=== PATIENT | male | born 1975 | race Caucasian/White ===

== ENCOUNTER 2020-03-08 11:46 | Emergency (ER) | payer BC, OTHER ==
[~2020-03-08] VITALS: Ht 157 cm; Wt 145.0 kg
[2020-03-08] MEDS: NITROGLYCERIN 0.4 MG SL TABS BTL 25'S SL PRN ×3 (12:28→14:44)
[2020-03-08] MEDS ORDERED: ASPIRIN 81 MG CHEW (CHILDREN'S ASA) PO ONE (12:30)
--- NOTE | 2020-03-08 12:31 | ED Chest Pain ---
General Chief Complaint: General Problems/Pain Stated Complaint: SOA;CHEST PAIN;HIGH BP Nursing Triage Note: PT ARRIVES TO ER WITH C/O CHEST PAIN, BLURRY VISION, SEVERE HEADACHES. 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 PT SAW AN EYE DOCTOR RECENTLY FOR BLURRY VISION AND THEY SAID IT WAS DUE TO HIGH BP WELL. PT SAYS CHEST PAIN IS A SQUEEZING PAIN RATED AT 3/10 AND DEEP BREATHS HELP THE PAIN. Nursing Sepsis Screen: No Definite Risk Source: patient Exam Limitations: no limitations History of Present Illness Date Seen by Provider: Mar 08, 2020 Time Seen by Provider: 12:12 Initial Comments This 44 her old gentleman presents to the emergency room with complaints of chest pressure, worse with exertion, that has been present intermittently since January. His pain started when he woke up this morning. He also has had some headaches and blurred vision. His blood pressure is markedly elevated. He has had hypertension in the past but has not been treated for it recently. Patient chews tobacco and drinks alcohol 3 or 4 days week typically. He also has a history of ulcer. Pain typically improves with deep breathing. Patient reports a previous evaluation with stress test a few years ago which was reportedly negative. It was performed at an outside facility. Allergies and Home Medications Allergies Coded Allergies: No Known Drug Allergies (Unverified , 03/08/20) Home Medications Lisinopril/Hydrochlorothiazide 1 Each Tablet, 1 EACH PO DAILY Prescribed by: SHERICE PLAZA on 03/08/20 1506 Omeprazole 20 Mg Capsule.dr, 20 MG PO BID Prescribed by: SHERICE PLAZA on 03/08/20 1506 Patient Home Medication List Home Medication List Reviewed: Yes Review of Systems Review of Systems Constitutional: no symptoms reported EENTM: See HPI Respiratory: See HPI Cardiovascular: See HPI Gastrointestinal: No Symptoms Reported Genitourinary: No Symptoms Reported Musculoskeletal: no symptoms reported Skin: no symptoms reported Psychiatric/Neurological: See HPI Endocrine: No Symptoms Reported Past Rvgoncd-Dusvsq-Pcivmb Hx Past Med/Social Hx: Reviewed Nursing Past Med/Soc Hx Patient Social History Alcohol Use: Regular Use (3 or 4 days per week) Alcohol Beverage of Choice: Beer Recreational Drug Use: No Recent Foreign Travel: No Contact w/Someone Who Travel: No Recent Infectious Disease Expo: No Past Medical History Surgeries: No Respiratory: No Cardiac: Yes Hypertension Neurological: No Genitourinary: No Gastrointestinal: No Musculoskeletal: Yes Chronic Back Pain Endocrine: Yes (Morbid obesity) HEENT: No Cancer: No Did You Recieve Any Treatments: No Psychosocial: No Integumentary: No Physical Exam Vital Signs Vital Signs - First Documented 03/08/20 12:05 Temp 36.7 Pulse 87 Resp 18 B/P (MAP) 201/129 (153) Pulse Ox 99 O2 Delivery Room Air Capillary Refill : Less Than 3 Seconds Height, Weight, BMI Height: '" Weight: lbs. oz. kg; 58.00 BMI Method: General Appearance: No Apparent Distress, WD/WN, Obese HEENT: PERRL/EOMI, Normal ENT Inspection, Pharynx Normal Neck: Normal Inspection; No JVD Respiratory: Lungs Clear, Normal Breath Sounds, No Accessory Muscle Use Cardiovascular: Regular Rate, Rhythm, No Edema Gastrointestinal: Normal Bowel Sounds, Soft, Tenderness (epigastric) Extremity: Normal Inspection, Non Tender, No Calf Tenderness, No Pedal Edema Neurologic/Psychiatric: Alert, Oriented x3, No Motor/Sensory Deficits, Normal Mood/Affect, blocklayer II-XII Norm as Tested Skin: Normal Color, Warm/Dry Progress/Results/Core Measures Results/Orders Lab Results Laboratory Tests Test 03/08/20 12:25 03/08/20 12:33 03/08/20 12:41 03/08/20 14:25 Range/Units White Blood Count 7.5 4.3-11.0 10^3/uL Red Blood Count 5.24 4.30-5.52 10^6/uL Hemoglobin 14.7 13.3-17.7 g/dL Hematocrit 44 40-54 % Mean Corpuscular Volume 85 80-99 fL Mean Corpuscular Hemoglobin 28 25-34 pg Mean Corpuscular Hemoglobin Concent 33 32-36 g/dL Red Cell Distribution Width 12.7 10.0-14.5 % Platelet Count 312 130-400 10^3/uL Mean Platelet Volume 9.9 9.0-12.2 fL Immature Granulocyte % (Auto) 0 % Neutrophils (%) (Auto) 69 42-75 % Lymphocytes (%) (Auto) 22 12-44 % Monocytes (%) (Auto) 7 0-12 % Eosinophils (%) (Auto) 1 0-10 % Basophils (%) (Auto) 1 0-10 % Neutrophils # (Auto) 5.2 1.8-7.8 10^3/uL Lymphocytes # (Auto) 1.6 1.0-4.0 10^3/uL Monocytes # (Auto) 0.5 0.0-1.0 10^3/uL Eosinophils # (Auto) 0.1 0.0-0.3 10^3/uL Basophils # (Auto) 0.0 0.0-0.1 10^3/uL Immature Granulocyte # (Auto) 0.0 0.0-0.1 10^3/uL Sodium Level 142 135-145 MMOL/L Potassium Level 3.8 3.6-5.0 MMOL/L Chloride Level 105 98-107 MMOL/L Carbon Dioxide Level 26 21-32 MMOL/L Anion Gap 11 5-14 MMOL/L Blood Urea Nitrogen 11 7-18 MG/DL Creatinine 0.99 0.60-1.30 MG/DL Estimat Glomerular Filtration Rate > 60 BUN/Creatinine Ratio 11 Glucose Level 99 70-105 MG/DL Calcium Level 8.9 8.5-10.1 MG/DL Corrected Calcium 8.9 8.5-10.1 MG/DL Magnesium Level 1.8 1.6-2.4 MG/DL Total Bilirubin 1.0 0.1-1.0 MG/DL Aspartate Amino Transf (AST/SGOT) 29 5-34 U/L Alanine Aminotransferase (ALT/SGPT) 69 H 0-55 U/L Alkaline Phosphatase 63 40-136 U/L Myoglobin 41.4 10.0-92.0 NG/ML Troponin I < 0.028 < 0.028 <0.028 NG/ML B-Type Natriuretic Peptide 39.2 <100.0 PG/ML Total Protein 7.1 6.4-8.2 GM/DL Albumin 4.0 3.2-4.5 GM/DL Coronavirus 2019 ([facility]) Negative Negative Prothrombin Time 13.5 12.2-14.7 SEC INR Comment 1.0 0.8-1.4 Activated Partial Thromboplast Time 31 24-35 SEC My Orders Orders - SHERICE JONES MD Cbc With Automated Diff (03/08/20 12:21) Magnesium (03/08/20 12:21) Chest 1 View, Ap/Pa Only (03/08/20 12:21) Ekg Tracing (03/08/20 12:21) Comprehensive Metabolic Panel (03/08/20 12:21) Myoglobin Serum (03/08/20 12:21) Protime With Inr (03/08/20 12:21) Partial Thromboplastin Time (03/08/20 12:21) O2 (03/08/20 12:21) Monitor-Rhythm Ecg Trace Only (03/08/20 12:21) Ed Iv/Invasive Line Start (03/08/20 12:21) BNP (03/08/20 12:21) Troponin I (03/08/20 12:21) Nitroglycerin 0.4 Mg Btl 25's (Nitrostat (03/08/20 12:30) Aspirin Chewable Tablet (Baby Aspirin Ch (03/08/20 12:30) Covid 19 Inhouse Test (03/08/20 12:27) Coronavirus Sars-Cov-2 So 2018 (03/08/20 13:05) Ondansetron Injection (Zofran Injectio (03/08/20 13:30) Lidocaine 2% Viscous 15 Ml (Xylocaine Vi (03/08/20 13:30) Antacid Suspension (Mylanta Suspension (03/08/20 13:30) Famotidine Injection (Pepcid Injection) (03/08/20 13:26) Troponin I (03/08/20 14:25) Enalaprilat Inj (Vasotec Inj) (03/08/20 14:30) Medications Given in ED Current Medications Medications Dose Ordered Sig/Fannie Route Start Time Stop Time Status Last Admin Dose Admin Al Hydrox/Mg Hydrox/Simethicone 30 ml ONCE ONCE PO 03/08/20 13:30 03/08/20 13:31 DC 03/08/20 14:13 30 ML Aspirin 324 mg ONCE ONCE PO 03/08/20 12:30 03/08/20 12:31 DC 03/08/20 12:28 324 MG Enalaprilat 1.25 mg ONCE ONCE IV 03/08/20 14:30 03/08/20 14:31 DC 03/08/20 14:36 1.25 MG Lidocaine HCl 15 ml ONCE ONCE PO 03/08/20 13:30 03/08/20 13:31 DC 03/08/20 14:13 15 ML Nitroglycerin 0.4 mg UD PRN SL 03/08/20 12:30 03/08/20 14:45 DC 03/08/20 14:44 0.4 MG Ondansetron HCl 4 mg ONCE ONCE IVP 03/08/20 13:30 03/08/20 13:31 DC 03/08/20 14:13 4 MG Vital Signs/I&O 03/08/20 03/08/20 12:05 15:15 Temp 36.7 36.8 Pulse 87 55 Resp 18 16 B/P (MAP) 201/129 (153) 142/96 Pulse Ox 99 97 O2 Delivery Room Air Blood Pressure Mean: 153 Progress Progress Note : Progress Note Workup was unremarkable. Repeat troponin at 2 hours was obtained and was negative. Patient had persistently high blood pressure. He had no improvement after one nitroglycerin. After the second and third nitroglycerin he had improvement in blood pressure and symptoms. Around the same time he also had a dose of Vasotec and a GI cocktail. He believes the GI cocktail helped him more than anything else. I did inform the patient that coronary artery disease and angina cannot be completely ruled out in the emergency room and that he needs further evaluation. I discussed the situation with Dr. Alcaraz who would like to see him soon, possibly in the clinic tomorrow. Patient was prescribed lisinopril with hydrochlorothiazide. He was free of any pain at the time of discharge. Initial ECG Impression Date: Mar 08, 2020 Initial ECG Impression Time: 12:31 Initial ECG Rate: 66 Initial ECG Rhythm: Normal Sinus Comment Sinus rhythm with no ST elevation or depression. No significant abnormal intervals or axis deviation. Diagnostic Imaging Diagonstic Imaging: Xray Plain Films/CT/US/NM/MRI: chest Comments NAME: ROBERTO ZAMORANO MED REC#: [id number] PT STATUS: DEP ER : 1975 PHYSICIAN: SHERICE JONES MD ADMIT DATE: 03/08/20/ER Signed Date of Exam:03/08/20 CHEST 1 VIEW, AP/PA ONLY INDICATION: Chest pain, blurred vision, and severe headaches. TECHNIQUE: A frontal chest was obtained at 12:43 PM with no prior study for comparison. FINDINGS: The heart and mediastinal silhouette are normal in appearance. The lungs are clear. There is no pneumothorax or pleural fluid. IMPRESSION: Negative chest. Dictated by: Dictated on workstation # [id number] Dict: 03/08/20 1258 Trans: 03/08/20 1619 [id number] Interpreted by: KATHERINE MARTINEZ MD Electronically signed by: KATHERINE MARTINEZ MD 03/08/20 1619 Reviewed: Reviewed by Me Departure Impression Primary Impression: Severe hypertension Additional Impressions: Chest pain Qualified Codes: R07.9 - Chest pain, unspecified Epigastric abdominal pain Disposition: HOME, SELF-CARE Condition: Improved Departure-Patient Inst. Decision time for Depature: 15:03 Referrals: PATY ALCARAZ MD [facility] Patient Instructions: Chest Pain, Gastritis Add. Discharge Instructions: Take your first dose of blood pressure medication when he picked up this evening. Take your next dose tomorrow morning. Also take aspirin 81 mg daily. Follow-up with a chimney supervisor brick such as Dr. Alcaraz as soon as possible. Please call this afternoon or first thing in the morning for an appointment. See contact information below. Start an antacid such as omeprazole as prescribed and continue until follow-up with a primary care provider. Return to the emergency room if you have worsening symptoms or symptoms that do not improve with treatment above. Work toward quitting tobacco and alcohol as these may be contributing to your pain and high blood pressure. All discharge instructions reviewed with patient and/or family. Voiced understanding. Scripts Omeprazole (Omeprazole) 20 Mg Capsule.dr 20 MG PO BID, #60 CAP Prov: SHERICE JONES MD 03/08/20 Lisinopril/Hydrochlorothiazide (Lisinopril-Hctz 20-25 mg Tab) 1 Each Tablet 1 EACH PO DAILY, #30 TAB Prov: SHERICE JONES MD 03/08/20 Copy Copies To 1: PATY ALCARAZ MD [facility] Copies To 2: CHARLI RUBI JOSHUA T MD Mar 08, 2020 12:31
[2020-03-08 12:40] LABS: BASOPHILS % (AUTO) 1 % (0-10); EOSINOPHILS # (AUTO) 0.1 10^3/uL (0.0-0.3); EOSINOPHILS % (AUTO) 1 % (0-10); HEMATOCRIT 44 % (40-54); HEMOGLOBIN 14.7 g/dL (13.3-17.7); LYMPHOCYTES # (AUTO) 1.6 10^3/uL (1.0-4.0); LYMPHOCYTES % (AUTO) 22 % (12-44); MEAN CORPUSCULAR HEMOGLOBIN 28 pg (25-34); MEAN CORPUSCULAR HGB CONC 33 g/dL (32-36); MEAN CORPUSCULAR VOLUME 85 fL (80-99); MEAN PLATELET VOLUME 9.9 fL (9.0-12.2); MONOCYTES # (AUTO) 0.5 10^3/uL (0.0-1.0); MONOCYTES % (AUTO) 7 % (0-12); NEUTROPHILS # (AUTO) 5.2 10^3/uL (1.8-7.8); NEUTROPHILS % (AUTO) 69 % (42-75); PLATELET COUNT 312 10^3/uL (130-400); WHITE BLOOD COUNT 7.5 10^3/uL (4.3-11.0)
[2020-03-08 12:50] LABS: CHLORIDE 105 MMOL/L (98-107); POTASSIUM 3.8 MMOL/L (3.6-5.0); SODIUM 142 MMOL/L (135-145)
[2020-03-08 12:51] LABS: CALCIUM 8.9 MG/DL (8.5-10.1)
[2020-03-08 12:52] LABS: GLUCOSE 99 MG/DL (70-105); TOTAL PROTEIN 7.1 GM/DL (6.4-8.2)
[2020-03-08 12:53] LABS: CARBON DIOXIDE 26 MMOL/L (21-32)
[2020-03-08 12:56] LABS: ALKALINE PHOSPHATASE 63 U/L (40-136); CREATININE SERUM 0.99 MG/DL (0.60-1.30); GFR ESTIMATED > 60
[2020-03-08 12:57] LABS: BUN/CREATININE RATIO 11
[2020-03-08 12:59] LABS: ALANINE AMINOTRANSFERASE 69 U/L (0-55); MAGNESIUM 1.8 MG/DL (1.6-2.4)
--- NOTE | 2020-03-08 13:01 | Diagnostic Imaging Report ---
INDICATION: Chest pain, blurred vision, and severe headaches. TECHNIQUE: A frontal chest was obtained at 12:43 PM with no prior study for comparison. FINDINGS: The heart and mediastinal silhouette are normal in appearance. The lungs are clear. There is no pneumothorax or pleural fluid. IMPRESSION: Negative chest. Dictated by: Dictated on workstation # [id number]
[2020-03-08 13:04] LABS: PROTHROMBIN TIME PATIENT 13.5 SEC (12.2-14.7)
[2020-03-08] MEDS ORDERED: FAMOTIDINE 20MG/2ML IV (PEPCID) IV STA (13:26)
[2020-03-08] MEDS ORDERED: ANTACID SUSP 30 ML UDC (MYLANTA) PO ONE (13:30)
[2020-03-08] MEDS ORDERED: LIDOCAINE 2% VISCOUS 15 ML UDC PO ONE (13:30)
[2020-03-08] MEDS ORDERED: ONDANSETRON 4 MG/2 ML (SDV) Z0FRAN IVP ONE (13:30)
[2020-03-08] MEDS ORDERED: ENALAPRILAT 1.25 MG/1 ML (VASOTEC) 1 ML VIAL IV ONE (14:30)
[2020-03-08] MEDS ORDERED: LISI1TAB26 PO (15:06)
[2020-03-08] MEDS ORDERED: OMEP20CA18 PO (15:06)
[2020-03-08 15:15] VITALS: BP 142/96
== END 2020-03-08 15:15 | disposition home or self-care (01) ==
LOC: ER 11:47
DX: I10 Essential (primary) hypertension (principal); R07.9 Chest pain, unspecified; R10.13 Epigastric pain; E66.01 Morbid (severe) obesity due to excess calories; Z20.828 Contact with and (suspected) exposure to other viral communicable diseases; Z68.43 Body mass index [BMI] 50.0-59.9, adult
CPT/HCPCS: 71045; 80053; 83735; 83874; 83880; 84443; 84484; 85025; 85610; 85730; 93041; U0002; 36415; 87635; 93005

== ENCOUNTER → 2020-03-22 | Outpatient (CLI) | payer BC ==
[~2020-03-22] MED LIST: LISI1TAB26 PO; OMEP20CA18 PO
== END ==
LOC: CARD 09:46
PROVIDERS: ATTEND Internal Medicine Cardiovascular Disease
DX: I11.9 Hypertensive heart disease without heart failure (principal); R07.89 Other chest pain; K27.9 Peptic ulcer, site unspecified, unspecified as acute or chronic, without hemorrhage or perforation
CPT/HCPCS: 93306

== ENCOUNTER → 2020-04-15 | Outpatient (CLI) | payer BC ==
[~2020-04-15] VITALS: Ht 182 cm; Wt 137.0 kg
[~2020-04-15] MED LIST changes: +REGADENOSON 0.4 MG/5 ML SYR (LEXISCAN) IV ONE
[2020-04-15] MEDS: CATHETER FLUSH 10 ML SYR IV PRN ×2 (07:37→09:10)
[2020-04-15 09:08] VITALS: BP 129/68
--- NOTE | 2020-04-15 13:11 | STRESS TEST ---
DATE OF SERVICE: 04/15/2020 RESTING AND POST REGADENOSON TECHNETIUM-99M TETROFOSMIN SPECT CT IMAGING ORDERING PHYSICIAN: Dr. Alcaraz. PRIMARY PHYSICIAN: [facility]. CLINICAL DIAGNOSIS: Chest discomfort. Baseline images were carried out after injection of 10.96 mCi of technetium-99m Tetrofosmin. This was followed by 0.4 mg regadenoson and 30.3 mCi of technetium-99m Tetrofosmin for stress imaging. The electrocardiogram showed sinus rhythm. Old septal myocardial infarction cannot be excluded on the electrocardiogram. The electrocardiogram did not change significantly with regadenoson infusion. The patient tolerated the procedure well. Review of images at rest and following stress indicates a small anterolateral perfusion defect, which appears to be transient. Gated images show normal global left ventricular systolic function with normal regional wall motion. Left ventricular ejection fraction is calculated to be 60%. CONCLUSIONS: 1. This study is suggestive of a small amount of anteroseptal ischemia. 2. Normal global left ventricular systolic function with normal regional wall motion and left ventricular ejection fraction of 60%. Job ID: [id number] DocumentID: [id number] Dictated Date: 04/15/2020 12:34:37 [employer]ter Date: 04/15/2020 13:10:15 Dictated By: PATY ALCARAZ MD, MA, FACP, FACC,
== END ==
LOC: CARD 08:00
PROVIDERS: ATTEND Internal Medicine Cardiovascular Disease
DX: I10 Essential (primary) hypertension (principal); K27.9 Peptic ulcer, site unspecified, unspecified as acute or chronic, without hemorrhage or perforation; R07.89 Other chest pain
CPT/HCPCS: 78452; 93017; A9502

== ENCOUNTER 2020-04-25 13:02 | Outpatient (CLI) | payer BC ==
[~2020-04-25 13:02] MED LIST changes: -REGADENOSON 0.4 MG/5 ML SYR (LEXISCAN) IV ONE
== END 2020-04-25 13:36 | disposition home or self-care (01) ==
LOC: SLEEP 13:02
PROVIDERS: ATTEND Otolaryngology Otolaryngology/Facial Plastic Surgery
DX: G47.33 Obstructive sleep apnea (adult) (pediatric) (principal)